=== PATIENT | female | born 1970 | race Caucasian/White ===

== ENCOUNTER 2019-05-31 13:43 | Emergency (ER) | payer MEDICARE, MEDICAID ==
--- NOTE | 2019-05-31 16:30 | ED ---
Head Injury - HPI Summary HPI Summary: The pt is a 48 yr old female presenting to [facility] [place] c/o dizziness after fall 2 days [employer]. She says she fell down at home 2 days ago, hitting her head and face. She rates her current pain intensity a 10/10. She also reports blurry vision, jaw pain, unsteady gait, dizziness, incontinence of her bowels, nausea, vomiting , headache, fatigue, tingling on her left side, dehydration, drowsiness, muscle spasms, and her roommate told her she has been repeating herself but denies incontinent bladder. She has Hx of back surgeries. - History Of Current Complaint Chief Complaint: EDFall Stated Complaint: FELL SAT/VOMITING/DIZZY/SHAKY PER PT Time Seen by Provider: 05/31/19 16:19 Hx Obtained From: Patient Mechanism Of Injury: Fall From Height Of: - fall from sitting Onset/Duration: Started Days Ago, Still Present Severity Currently: Severe Severity Initially: Severe Pain Intensity: 10 Pain Scale Used: 0-10 Numeric Location: Discrete At: - jaw, head Associated Signs And Symptoms: Negative - urine incontinence, Nausea, Vomiting, Visual Changes, Other: - jaw pain, unsteady gait, dizziness, incontinence of bowels, headache, fatigue, tingling, dehydration, drowsiness, muscle spasms, repeating herself - Allergies/Home Medications Allergies/Adverse Reactions: Allergies Allergy/AdvReac Type Severity Reaction Status Date / Time No Known Allergies Allergy Verified 05/31/19 13:59 PMH/Surg Hx/FS Hx/Imm Hx Previously Healthy: Yes Musculoskeletal History: Reports: Hx Back Problems Sensory History: Denies: Hx Legally Blind, Hx Deafness Opthamlomology History: Denies: Hx Legally Blind EENT History: Denies: Hx Deafness - Surgical History Surgical History: Yes Surgery Procedure, Year, and Place: 5 back surgeries - Immunization History Immunizations Up to Date: Yes Infectious Disease History: No Infectious Disease History: Denies: Traveled Outside the [place] in Last 30 Days - Family History Known Family History: Negative: Renal Disease - Social History Alcohol Use: Occasionally Hx Substance Use: No Substance Use Type: Reports: None Hx Tobacco Use: Yes Smoking Status (MU): Heavy Every Day Tobacco Smoker Review of Systems Positive: Fatigue, Other - dehydration Positive: Vomiting, Nausea, Other - incontinence of bowels Positive: other - negative - incontinent bladder. Negative: incontinence - urinary incontinence Positive: Other - unsteady gait, myalgia Neurological: Other - dizziness Positive: Headache, Paresthesia All Other Systems Reviewed And Are Negative: Yes Physical Exam - Summary Physical Exam Summary: Constitutional: Well-developed, Well-nourished, Alert. (-) Distressed Skin: Warm, Dry HENT: Normocephalic; Atraumatic, ecchymosis of left upper eyelid, healed 1 cm laceration over left eyebrow, tenderness over left face, tenderness of jaw, pain with opening mouth Eyes: Conjunctiva normal Neck: Musculoskeletal ROM normal neck. (-) JVD, (-) Stridor, (-) Tracheal deviation Cardio: Rhythm regular, rate normal, Heart sounds normal; Intact distal pulses; The pedal pulses are 2+ and symmetric. Radial pulses are 2+ and symmetric. (-) Murmur Pulmonary/Chest wall: Effort normal. (-) Respiratory distress, (-) Wheezes, (-) Rales Abd: Soft, (-) tenderness, (-) Distension, (-) Guarding, (-) Rebound Musculoskeletal: (-) Edema Lymph: (-) Cervical adenopathy Neuro: Alert, Oriented x3 Psych: Mood and affect Normal Triage Information Reviewed: Yes Vital Signs On Initial Exam: Initial Vitals Temp Pulse Resp BP Pulse Ox 98.6 F 64 16 152/92 98 05/31/19 13:56 05/31/19 13:56 05/31/19 13:56 05/31/19 13:56 05/31/19 13:56 Vital Signs Reviewed: Yes - Susannah Coma Scale Best Eye Response: 4 - Spontaneous Best Motor Response: 6 - Obeys Commands Best Verbal Response: 5 - Oriented Coma Scale Total: 15 Diagnostics - Vital Signs Vital Signs Temp Pulse Resp BP Pulse Ox 05/31/19 16:01 72 97 05/31/19 15:58 71 119/82 97 05/31/19 15:28 86 126/75 98 05/31/19 15:02 67 94 05/31/19 14:58 69 142/84 05/31/19 13:56 98.6 F 64 16 152/92 98 - Laboratory Result Diagrams: 05/31/19 16:45 05/31/19 16:45 Lab Statement: Any lab studies that have been ordered have been reviewed, and results considered in the medical decision making process. - Radiology CXR Radiology Interpretation Completed By: Radiologist Summary of Radiographic Findings: IMPRESSION: NO ACTIVE CARDIOPULMONARY DISEASE. ED Physician has reviewed this report. - CT CT Maxilofacial CT Interpretation Completed By: Radiologist Summary of CT Findings: IMPRESSION: NO FACIAL FRACTURE. ED physician has reviewed this report CT Brain CT Interpretation Completed By: Radiologist Summary of CT Findings: IMPRESSION: NO ACUTE INTRACRANIAL PATHOLOGY. ED Physician has reviewed this report. Re-Evaluation - Re-Evaluation Second Eval Re-Evaluation Time: 18:00 Comment: Lab results were discussed with pt. Head Injury Course/Dx Course Of Treatment: The pt is a 48 yr old female presenting to [facility] c/o dizziness after fall 2 days [employer]. She says she fell down at home 2 days ago, hitting her head and face. She rates her current pain intensity a 10/10. She also reports blurry vision, jaw pain, unsteady gait, dizziness, incontinence of her bowels, nausea, vomiting, headache, fatigue, tingling on her left side, dehydration, drowsiness, muscle spasms, and her roommate told her she has been repeating herself but denies incontinent bladder. She has Hx of back surgeries. The physical exam was only notable for ecchymosis of the left upper eyelid, healed 1 cm laceration over left eyebrow, tenderness over left face, tenderness of jaw, pain with opening mouth. Test results normal except for MCV @ 99, MCH @33, Glucose @ 65, and Ur specific gravity @ 1.003. A maxillofacial CT reveals: NO FACIAL FRACTURE. A brain CT reveals: NO ACUTE INTRACRANIAL PATHOLOGY. A CXR reveals: NO ACTIVE CARDIOPULMONARY DISEASE. The pt was diagnosed with fall, non-diabetic hypoglycemia, and facial contusion, discharged home, and instructed to follow up with PCP within 3 days. - Diagnoses Provider Diagnoses: Nondiabetic hypoglycemia, Facial contusion, Fall Discharge - Sign-Out/Discharge Documenting (check all that apply): Patient Departure - discharge Patient Received Moderate/Deep Sedation with Procedure: No - Discharge Plan Condition: Stable Disposition: HOME Patient Education Materials: Non-diabetic Hypoglycemia (ED), Facial Contusion ( ED) Print Language: SPANISH Referrals: Bucky Corona MD [Medical Doctor] - Kerline Espinal NP [Primary Care Provider] - Additional Instructions: If your jaw pain doesn't resolve in the next week, follow-up with ENT or a dentist. - Attestation Statements Document Initiated by Scribe: Yes Documenting Scribe: Mal Vizcarra Provider For Whom Leahibkaren is Documenting (Include Credential): Shayla Morales MD Scribe Attestation: IMal, scribed for Shayla Murrell MD on 05/31/19 at 1924. Status of Scribe Document: Ready
[2019-05-31 16:56] LABS: ABS Basophils 0.1 10^3/ul (0-0.2); ABS Eosinophils 0.1 10^3/ul (0-0.6); ABS Lymphocytes 2.9 10^3/ul (1.0-4.8); ABS Monocytes 0.5 10^3/ul (0-0.8); Eosinophil % 1.3 %; Hematocrit 43 % (35-47); Hemoglobin 14.4 g/dL (12.0-16.0); Lymphocyte % 33.4 %; Mean Corpuscular HGB Conc 33 g/dL (31-36); Mean Corpuscular Hemoglobin 33 pg (27-31); Mean Corpuscular Volume 99 fL (80-97); Mean Platelet Volume 9.5 fL (7.4-10.4); Platelet Count 247 10^3/uL (150-450); Red Blood Count 4.35 10^6 /uL (3.70-4.87); Red Cell Distribution Width 14 % (10-15); White Blood Count 8.6 10^3/uL (3.5-10.8)
[2019-05-31 17:36] LABS: Urine Appearance Clear; Urine Bilirubin Negative (Negative); Urine Blood Negative (Negative); Urine Color Straw; Urine Glucose Negative (Negative); Urine Ketones Negative (Negative); Urine Nitrite Negative (Negative); Urine Protein Negative (Negative); Urine Specific Gravity 1.003 (1.010-1.030); Urine Urobilinogen Negative (Negative)
[2019-05-31 17:45] LABS: Albumin 4.4 g/dL (3.2-5.2); BUN/Creatinine Ratio 12.7 (8-20); Calcium 9.3 mg/dL (8.6-10.3); EGFR African American 107.2 (>60); EGFR Non-African American 88.6 (>60); Globulin 2.2 g/dL (2-4); Potassium 4.5 mmol/L (3.5-5.0); Total Bilirubin 0.3 mg/dL (0.2-1.0); Total Protein 6.6 g/dL (6.4-8.9)
[2019-05-31 18:43] VITALS: BP 119/71
== END 2019-05-31 18:42 | disposition home or self-care (01) ==
LOC: ED 13:43
DX: E16.2 Hypoglycemia, unspecified (principal); S00.12XA Contusion of left eyelid and periocular area, initial encounter; W19.XXXA Unspecified fall, initial encounter; Y92.009 Unspecified place in unspecified non-institutional (private) residence as the place of occurrence of the external cause; R68.84 Jaw pain; R15.9 Full incontinence of feces; R11.2 Nausea with vomiting, unspecified; R53.83 Other fatigue; F17.200 Nicotine dependence, unspecified, uncomplicated
CPT/HCPCS: 36415; 70450; 70486; 71046; 80053; 81003; 85025; 99282

== ENCOUNTER 2019-12-15 09:01 | Day surgery (SDC) | payer MEDICARE, MEDICAID ==
[~2019-12-15 09:01] MED LIST: Buffered Lidocaine 1% SYRIN* 1 ML/SYRINGE INTRADERM ONE; Lactated Ringers 1000 ML Bag* 1,000 ML IV SCH
[2019-12-15] MEDS ORDERED: ceFAZolin 2 GM PREMIX in ORs 2 GM/50 ML BAG ONE (09:20)
[2019-12-15] MEDS ORDERED: Lidocaine 1% INJ* 10 MG/ML 30 ML SDV ONE (10:52)
[2019-12-15] MEDS ORDERED: Bupivacaine 0.5% SDV PF* 30ML VIAL ONE (10:52)
[2019-12-15] MEDS ORDERED: Dexamethasone IV* 4 MG/ML 1 ML (4 MG) ONE ×2 (10:52→11:32)
[2019-12-15] MEDS ORDERED: Lidocaine 2% PF * 5 ML VIAL ONE (11:00)
[2019-12-15] MEDS ORDERED: Propofol* 10 MG/ML 20 ML BTL ONE (11:00)
[2019-12-15] MEDS ORDERED: Midazolam* 1 MG/ML 5 ML VIAL (5 MG) ONE (11:00)
[2019-12-15] MEDS ORDERED: fentaNYL* 50 MCG/ML 2 ML VIAL (100 MCG VIAL) ONE (11:00)
[2019-12-15] MEDS ORDERED: Naloxone* 0.4 MG/ML 1 ML VIAL IV PRN (12:08)
[2019-12-15] MEDS ORDERED: Ondansetron INJ* 2 MG/ML VIAL IV PRN (12:08)
[2019-12-15] MEDS ORDERED: DiMENhydriNATE IV* 50 MG/ML VIAL IV PUSH PRN (12:08)
[2019-12-15] MEDS ORDERED: oxyCODONE/Acetamin 5/325 MG* TAB PO PRN (12:08)
[2019-12-15] MEDS ORDERED: fentaNYL* 50 MCG/ML 2 ML VIAL (100 MCG VIAL) IV PRN (12:08)
[2019-12-15] MEDS ORDERED: HYDROmorphone INJ1* 1 MG/ML SYRINGE IV PRN (12:08)
[2019-12-15] MEDS ORDERED: Ondansetron INJ* 2 MG/ML VIAL ONE (12:30)
[2019-12-15 13:55] VITALS: BP 125/82
--- NOTE | 2019-12-15 21:34 | OP ---
DATE OF OPERATION: 12/15/19 - [facility] DATE OF : 74 SURGEON: Benedicto Bain DPM ANGLE FURNACEMAN: None. ANESTHESIA: General. PRE-OP DIAGNOSES: 1. Hallux rigidus, right foot. 2. Painful deep hardware, first metatarsal, right foot. 3. Painful second right hammertoe. 4. Painful fifth right hammertoe. POST-OP DIAGNOSES: 1. Hallux rigidus, right foot. 2. Painful deep hardware, first metatarsal, right foot. 3. Painful second right hammertoe. 4. Painful fifth right hammertoe. OPERATIVE PROCEDURE: 1. Removal of deep hardware of 2 screws in the first metatarsal in the right foot. 2. Cheilectomy with BioPro rodrigo great toe joint implant on the right foot. 3. Correction of second right hammertoe with PIPJ arthroplasty and K-wire fixation. 4. Correction of fifth right hammertoe with derotation arthroplasty and K-wire fixation, fifth digit, right foot. INDICATIONS: The patient with prior right great toe joint surgery, which appeared to include a first metatarsal osteotomy. This was done by another provider. Two screws remain in place adjacent to the joint. She has continued joint pain, limited range of motion, osteophyte proliferation, pain with walking and wearing shoes. She opts for surgery to address this as well as two contracted and painful hammertoes on the second and fifth toes on the right foot. These also cause pain when wearing shoes and walking. She opts for surgery at this time to potentially decrease her pain and improve her function. PATHOLOGY: Degenerative bone. HEMOSTASIS: Pneumatic ankle tourniquet. ESTIMATED BLOOD LOSS: Less than 20 cc. MATERIALS: A size small porous coated BioPro rodrigo great toe joint implant and 2 smooth 0.045-inch K-wires. DESCRIPTION OF PROCEDURE: The patient was brought to the operating room and placed on the operating table in supine position. The anesthesia department administered general anesthesia and the right foot was then prepped and draped in the usual fashion. Peripheral nerve block was performed with a 1:1 mixture of 1% lidocaine plain and 0.5% Marcaine plain. The right foot was then exsanguinated and the pneumatic ankle tourniquet was inflated to 250 mmHg about a well-padded right ankle. Attention was directed to the dorsomedial aspect of the right great toe joint where previous surgical scars noted and using a portion of the scar as much as possible. Linear incision was made. The incision was deepened through the subcutaneous tissues, reestablishing tissue planes as there was fibrous and scar type tissue as expected. Larger neurovascular structures were gently retracted and cauterized as needed. Linear incision was made through the capsular and deep fascia to allow for exposure of the joint. There was noted to be an abundance of osteophyte proliferation at the dorsal and medial aspects of both the first metatarsal head and the base of the proximal phalanx. The cartilage surfaces were inspected and noted to have partial and full-thickness erosions on both the base of the proximal phalanx as well as portions of the head with first metatarsal. The sesamoid apparatus had adhesions and was freed with a McGlamry elevator. Next, the osteophytes from the head of the first metatarsal resected with the sagittal saw and power bur to reduce the bulk of the first metatarsal head. A rongeur was also used to remove some of the osteophytes on the base of the proximal phalanx to allow for adequate exposure of the joint. Surgical site was flushed with copious amounts of normal sterile saline. Next, using recommended technique for the BioPro implant, the base of the proximal phalanx was resected with subperiosteal dissection to maintain intrinsic attachments of the great toe. The base of the proximal phalanx was sent off the field and a bur rongeur was used to smooth rough edges on the remaining base of the proximal phalanx. The surgical site was flushed with copious amounts of normal sterile saline. Using the proximal sizer, determined size small implant was needed using the broach for placement of stem. This was done and then the implant was implanted into the base of the proximal phalanx and secured positioning in the desired position as well and well seated. The position was assessed with the C-arm. The range of motion noted to be significantly improved. Again, the surgical site was flushed with copious amounts of normal sterile saline. The capsular and deep fascia was reapproximated and secured with 2-0 Vicryl and subcutaneous tissues reapproximated with 4-0 Vicryl and the skin was closed with 5-0 nylon. Attention was then directed to the second digit where at the level of the proximal interphalangeal joint, two semi-elliptical incisions were made transversely. The resultant wedge of skin was resected. Superficial bleeders were cauterized and larger neurovascular structures retracted as needed. A transverse tenotomy- capsulotomy was performed to allow for exposure of the proximal phalangeal head, which was resected with the sagittal saw and a power bur was used to reduce the bulk in rough edges. Surgical site was flushed with copious amounts of normal sterile saline. Next, a smooth 0.045-inch K-wire was driven to the base of the middle phalanx through the tip of the toe, retrograded proximally to ensure that the tip of the wire did not penetrate into the metatarsophalangeal joint and this was assessed with the C-arm as well. The joint was reapproximated and the tendinous structures were reapproximated and secured with 4-0 Vicryl and the skin was closed with 5-0 nylon. The attention was directed to the fifth right digit where 2 obliquely oriented semi-elliptical incisions were made to offer derotation of the digit upon closure. The resultant wedge of skin was resected and superficial bleeders were cauterized as needed and larger neurovascular structures were retracted and protected. A transverse tenotomy-capsulotomy was performed to allow for exposure of the proximal interphalangeal head, which was resected with the sagittal saw and a power bur was used to smooth rough edges. The surgical site was flushed with copious amounts of normal sterile saline. It was determined that a wire was needed to stabilize the toe and allow for more rectus healing and so a smooth 0.045-inch K-wire was retrograded through the middle phalanx through tip of the toe, retrograded back through the proximal phalanx being careful to ensure the tip of the wire did not penetrate into the metatarsophalangeal joint; this was also assessed with the C-arm. The tendinous structures and ligaments were reapproximated and secured with 4-0 Vicryl and subcutaneous sutures were used for the 4-0 Vicryl as well, holding the digit in the derotated position and the skin was closed with 5-0 nylon. We were also holding the digit in derotated position. Both wires were cut and capped. Furthermore, the Mastisol and Steri-Strips were used to maintain alignment, minimize rotation, and maintain the position of the K- wires throughout the recovery process. The incisions were dressed with Xeroform gauze and sterile dressings applied with a light compression wrap with Webril and Coban. The pneumatic ankle tourniquet was deflated about the ankle and a prompt hyperemic response was noted in all 5 digits and having appeared to tolerate the procedure and anesthesia well. The patient was transported via cart from the operating room to Recovery in satisfactory condition with cap refill less than 3 seconds to all digits of the right foot. [id number]/[facility] #: [id number] MTDD
== END 2019-12-15 13:53 | disposition home or self-care (01) ==
LOC: OREAST 09:01
PROVIDERS: ATTEND Podiatrist Foot Surgery
DX: M20.21 Hallux rigidus, right foot (principal); T84.84XA Pain due to internal orthopedic prosthetic devices, implants and grafts, initial encounter; M20.41 Other hammer toe(s) (acquired), right foot; I47.1 Supraventricular tachycardia; F41.8 Other specified anxiety disorders; F98.8 Other specified behavioral and emotional disorders with onset usually occurring in childhood and adolescence; F31.9 Bipolar disorder, unspecified; I10 Essential (primary) hypertension; M79.7 Fibromyalgia; F17.200 Nicotine dependence, unspecified, uncomplicated
CPT/HCPCS: 76000; C1776; J0690; J1100; J2250; J2405; J2704; J3010; J3490